=== PATIENT | male | born 1965 | race Caucasian/White ===

== ENCOUNTER 2018-04-21 22:57 | Emergency (ER) | payer OTHER ==
[~2018-04-21] VITALS: Ht 170.2 cm; Wt 78.0 kg
[2018-04-21 23:03] VITALS: Ht 170.2 cm; Wt 78.0 kg
[2018-04-22 01:38] VITALS: BP 136/88
== END 2018-04-22 01:38 | disposition home or self-care (01) ==
LOC: ED 22:57
DX: S61.111A Laceration without foreign body of right thumb with damage to nail, initial encounter (principal); I10 Essential (primary) hypertension; W26.8XXA Contact with other sharp object(s), not elsewhere classified, initial encounter; Y93.89 Activity, other specified; Y92.89 Other specified places as the place of occurrence of the external cause; Y99.8 Other external cause status

== ENCOUNTER 2018-04-24 05:22 | Emergency (ER) | payer OTHER ==
[~2018-04-24] VITALS: Ht 170.2 cm; Wt 76.2 kg
[2018-04-24 05:33] VITALS: Ht 170.2 cm; Wt 76.2 kg
[2018-04-24 05:55] VITALS: BP 137/95
== END 2018-04-24 05:55 | disposition home or self-care (01) ==
LOC: ED 05:22
DX: S61.011D Laceration without foreign body of right thumb without damage to nail, subsequent encounter (principal); W26.8XXD Contact with other sharp object(s), not elsewhere classified, subsequent encounter